=== PATIENT | female | born 1940 | race Caucasian/White ===

== ENCOUNTER 2018-11-26 19:04 | Emergency (ER) | payer MEDICARE, OTHER ==
--- NOTE | 2018-11-26 20:03 | EDM.PDOC ---
ED HPI GENERAL MEDICAL PROBLEM - General Chief Complaint: Upper Extremity Injury/Pain Stated Complaint: BROKEN FINGER Time Seen by Provider: 11/26/18 19:50 Source of Information: Reports: Patient History Limitations: Reports: No Limitations - History of Present Illness INITIAL COMMENTS - FREE TEXT/NARRATIVE: 78-year-old female who was walking up the steps to her house and misstepped falling forward and caught herself with her outstretched right arm and hand. She struck her right fifth finger against the door jamb and now there is deformity and pain in the right fifth finger. This occurred approximately 6 PM tonight. She did not hit her head. There was no loss of consciousness. There was no dizziness. She does have pain in the right fifth finger that she rates as a 5/10. It is a sharp pain. She cannot move the finger secondary to the pain. There is an obvious deformity in the PIP area of the finger. She has good perfusion in the distal fifth finger. She has no pain in the hand or the wrist. No elbow pain. There are no open wounds. There are no other associated signs or symptoms. There are no other modifying factors. Onset: Today (6 PM) Duration: Constant Location: Reports: Upper Extremity, Right (Right fifth finger) Quality: Reports: Ache, Sharp, Throbbing Severity: Moderate Improves with: Reports: Immobilization, Rest Worsens with: Reports: Other (Palpation), Movement Context: Reports: Activity (As above) Associated Symptoms: Reports: No Other Symptoms Treatments OFFICE SPEC: Reports: Other (see below) (Nothing) right side fifth finger Pain Score (Numeric/FACES): 5 - Related Data Allergies Allergy/AdvReac Type Severity Reaction Status Date / Time No Known Allergies Allergy Verified 11/26/18 19:48 Home Meds: Home Meds Alendronate [Fosamax] 70 mg PO WEEKLY 11/26/18 [History] Calcium Citrate/Vitamin D3 [Calcium Cit 315-Vit D3 200 Cpt] 2 each PO DAILY [History] Celecoxib [CeleBREX] 0 mg PO DAILY 11/26/18 [History] Cholecalciferol (Vitamin D3) [Vitamin D3] 2,000 unit PO DAILY 11/26/18 [History] Levothyroxine 75 mcg PO ACBREAKFAST 11/26/18 [History] Lisinopril 20 mg PO DAILY 11/26/18 [History] Multivitamin [Daily Multiple Vitamin] 1 each PO DAILY 11/26/18 [History] Past Medical History HEENT History: Reports: Impaired Vision (Wears glasses) Cardiovascular History: Reports: High Cholesterol, Hypertension Endocrine/Metabolic History: Reports: Hypothyroidism - Past Surgical History GI Surgical History: Reports: Appendectomy Endocrine Surgical History: Reports: Thyroidectomy Social & Family History - Tobacco Use Smoking Status *Q: Former Smoker (Quit 10 years ago) - Alcohol Use Alcohol Use History: Yes Alcohol Use Frequency: Weekly - Living Situation & Occupation Living situation: Reports: Social History Comment: She is here with her . Review of Systems - Review of Systems Review Of Systems: See Below Constitutional: Reports: No Symptoms Eyes: Reports: No Symptoms Ears: Reports: No Symptoms Nose: Reports: No Symptoms Mouth/Throat: Reports: No Symptoms Respiratory: Reports: No Symptoms Cardiovascular: Reports: No Symptoms GI/Abdominal: Reports: No Symptoms Genitourinary: Reports: No Symptoms Musculoskeletal: Reports: Hand Pain (Pain with deformity of right fifth finger) , Other (Right hand dominant) Skin: Reports: No Symptoms (No open wounds.) Neurological: Reports: No Symptoms ED EXAM, GENERAL - Physical Exam Exam: See Below Exam Limited By: No Limitations General Appearance: Alert, WD/WN, Mild Distress Eye Exam: Bilateral Eye: EOMI, Normal Inspection, PERRL Ears: Normal External Exam Ear Exam: Bilateral Ear: Auricle Normal Nose: Normal Inspection, Normal Mucosa, No Blood Throat/Mouth: Normal Inspection, Normal Oropharynx, Normal Voice, No Airway Compromise Head: Atraumatic, Normocephalic Neck: Normal Inspection, Supple, Non-Tender, Full Range of Motion Respiratory/Chest: No Respiratory Distress, Lungs Clear, Normal Breath Sounds, No Accessory Muscle Use, Chest Non-Tender Cardiovascular: Normal Peripheral Pulses, Regular Rate, Rhythm, No JVD Peripheral Pulses: 2+: Radial (L), Radial (R) GI/Abdominal: Normal Bowel Sounds, Soft, Non-Tender, No Mass Back Exam: Normal Inspection Extremities: Normal Capillary Refill, Other (Tenderness with deformity and right fifth finger PIP. Nontender in the rest of the hand, wrist or elbow on the right side.) Neurological: Alert, Oriented, CN II-XII Intact, Normal Cognition, No Motor/ Sensory Deficits Skin Exam: Warm, Dry, Intact, Normal Color, No Rash ED TRAUMA EXTREMITY PROCEDURES - Joint Reduction Site: Finger (R) (Right fifth finger PIP joint) Sedation: Other (None) Pre-Procedure NV Status: Normal Post-Procedure NV Status: Normal Technique: Traction/Counter Traction Number of Attempts: 1 Post-Reduction Imaging: Completely Reduced, No Fracture Seen (Before or after) Joint Reduction Complications: No Progress/Comments: After informed verbal consent was obtained from the patient, standard reduction technique performed on the fifth finger for reduction of PIP dislocation. The patient tolerated this procedure well. She had full active range of motion in the right fifth finger following this procedure and neurovascular motor sensory was intact. There were no apparent complications. There did appear to be a slight avulsion fracture along the volar aspect of the proximal mid phalanx and that was also apparent on the postreduction film. The patient's right fourth and fifth fingers will be daron taped. The patient will be seeing an orthopedist on 11/29/2018 through [place] in [place] and she should follow-up with him in regard to this fracture and dislocation as well. Course - Vital Signs Last Recorded V/S: Last Vital Signs Temp 36.6 C 11/26/18 19:04 Pulse 73 11/26/18 19:04 Resp 17 11/26/18 19:04 BP 118/67 11/26/18 19:04 Pulse Ox 100 11/26/18 19:04 - Orders/Labs/Meds Orders: Active Orders 24 hr Category Date Time Status Fingers Fifth Digit Rt F9 [CR] Stat Exams 11/26/18 19:55 Taken Fingers Fifth Digit Rt F9 [CR] Stat Exams 11/26/18 20:22 Taken - Radiology Interpretation Free Text/Narrative:: X-ray of the right fifth finger shows dislocation of the right fifth PIP joint. There does appear to be a volar plate avulsion fracture of the proximal mid phalanx. X-ray of the right fifth finger post reduction shows anatomic alignment and the aforementioned avulsion fracture of the proximal mid phalanx. - Re-Assessments/Exams Free Text/Narrative Re-Assessment/Exam: 11/26/18 20:40: Patient with dislocation of right fifth finger PIP joint. There did appear to be a volar plate avulsion fracture of the proximal mid phalanx. This appeared to be present before reduction. The patient's finger was reduced and the right fourth and fifth fingers were daron taped. She did have full range of motion in the right fifth finger following reduction and prior to applying the daron tape. The patient is to follow-up with an orthopedic physician on 11/29/2018. She should follow-up with an orthopedic physician in regard to her right fifth finger as well. Departure - Departure Time of Disposition: 20:47 Disposition: Home, Self-Care 01 Condition: Good (Improved) Clinical Impression: Dislocation, finger, interphalangeal joint Qualifiers: Encounter type: initial encounter Qualified Code(s): S63.279A - Dislocation of unspecified interphalangeal joint of unspecified finger, initial encounter Finger fracture, right Qualifiers: Encounter type: initial encounter Finger: little finger Fracture type: closed Phalanx: middle Fracture alignment: displaced Qualified Code(s): S62.626A - Displaced fracture of middle phalanx of right little finger, initial encounter for closed fracture - Discharge Information Instructions: Finger or Thumb Dislocation, [id number], Finger Fracture, Adult , [id number] Referrals: PCP,None [Primary Care Provider] - Forms: ED Department Discharge Additional Instructions: You had a dislocation of your right fifth finger. Associated with this, you also had a slight avulsion fracture of the middle bone of your right fifth finger. You had full range of motion in your right fifth finger after it was put back into place. Take the CD that we provided you with you when you go to see the orthopedist at [facility] on 11/29/2018. Leave the daron tape intact most of the time. You may change it and you are cleaning the area. You may take Tylenol and ibuprofen as needed for pain. Back to the emergency department for marked increase in pain, signs of infection or any other concerning sign or symptom. - My Orders Last 24 Hours: My Active Orders 11/26/18 19:55 Fingers Fifth Digit Rt F9 [CR] Stat 11/26/18 20:22 Fingers Fifth Digit Rt F9 [CR] Stat - Assessment/Plan Last 24 Hours: My Active Orders 11/26/18 19:55 Fingers Fifth Digit Rt F9 [CR] Stat 11/26/18 20:22 Fingers Fifth Digit Rt F9 [CR] Stat
== END 2018-11-26 20:57 | disposition home or self-care (01) ==
LOC: FB.ED 19:04
DX: S63.286A Dislocation of proximal interphalangeal joint of right little finger, initial encounter (principal); S62.626A Displaced fracture of middle phalanx of right little finger, initial encounter for closed fracture; I10 Essential (primary) hypertension; E03.9 Hypothyroidism, unspecified; Z79.899 Other long term (current) drug therapy; Z87.891 Personal history of nicotine dependence; W10.9XXA Fall (on) (from) unspecified stairs and steps, initial encounter
CPT/HCPCS: 26770; 43753; 73140-F9; 99283; 99283-25